=== PATIENT | male | born 1930 | race Caucasian/White ===

== ENCOUNTER 2018-10-27 12:26 | Emergency (ER) | payer MEDICARE, OTHER ==
[2018-10-27] MEDS ORDERED: IPRATROPIUM/ALBUTEROL (0.5MG/3MG) NEB INH ONE (13:03)
--- NOTE | 2018-10-27 13:11 | Emergency Department Record ---
History of Present Illness - General Chief Complaint: Shortness of breath Stated Complaint: SONJA,BALANCE OFF Time Seen by Provider: 10/27/18 12:50 Source: Patient Mode of Arrival: Ambulatory Limitations: No limitations - History of Present Illness Initial Comments: The patient is here due to a 2-3 day hx of cough and congestion with mild SOB. He does have an extensive hx of smoking and bronchitis but is on no inhallers. The patient denies any Cp, back pain, KUMAR, neck pain or sputum production. He also has had some balance issues recently and has fallen a couple of times per the patient's daughter. He may have bumped his head 2 days ago. The patient has been walking well today. MD Complaint: Cough, Shortness of breath Onset/Timin -: Days(s) Improves With: Nothing Worsens With: Nothing Associated Symptoms: Cough Treatments Prior to Arrival: Bronchodilator Treatment Prior to Arrival Comment:: 1030 this morning/albuterol - Related Data Home Medications Medication Instructions Recorded Confirmed Last Taken Aspirin [Lo-Dose Aspirin EC] 81 mg PO DAILY 10/27/18 10/27/18 Unknown Atenolol 25 mg PO DAILY 10/27/18 10/27/18 Unknown Clopidogrel Bisulfate [Plavix] 75 mg PO DAILY 10/27/18 10/27/18 Unknown Cyanocobalamin (Vitamin B-12) 1,000 mcg PO DAILY 10/27/18 10/27/18 Unknown [Vitamin B-12] Glipizide 10 mg PO BID 10/27/18 10/27/18 Unknown Lisinopril 20 mg PO DAILY 10/27/18 10/27/18 Unknown Potassium Chloride [Klor-Con] 10 meq PO DAILY 10/27/18 10/27/18 Unknown Simvastatin [Zocor] 40 mg PO DAILY 10/27/18 10/27/18 Unknown Previous Rx's Medication Instructions Recorded Albuterol Sulfate [Proair Hfa] 2 puff IH QID PRN #1 inhaler 10/27/18 Levofloxacin [Levaquin] 500 mg PO DAILY #6 tablet 10/27/18 Allergies Allergy/AdvReac Type Severity Reaction Status Date / Time No Known Drug Allergies Allergy Verified 10/27/18 12:48 Travel Screening - Travel/Exposure Within Last 30 Days Have you traveled within the last 30 days?: No Review of Systems Constitutional: Reports: Malaise. Denies: Chills, Fever Eyes: Denies: Eye discharge ENT: Reports: Congestion Respiratory: Reports: Cough, Dyspnea. Denies: Hemoptysis Cardiovascular: Denies: Arrhythmia, Chest pain Endocrine: Denies: Fatigue Gastrointestinal: Denies: Nausea Genitourinary: Denies: Dysuria Musculoskeletal: Denies: Back pain Skin: Denies: Bruising Past Medical History - SOCIAL HISTORY Smoking Status: Current every day smoker Alcohol Use: None Drug Use: None - RESPIRATORY Hx Respiratory Disorders: Yes Hx Bronchitis: Yes - CARDIOVASCULAR Hx Cardio Disorders: Yes Hx Heart Attack: Yes - NEURO Hx Neuro Disorders: Yes Hx CVA: Yes Hx Seizures: Yes - GI Hx GI Disorders: No - Hx Genitourinary Disorders: No - ENDOCRINE Hx Endocrine Disorders: Yes Hx Diabetes: Yes (type 2) Hx Thyroid Disease: No - MUSCULOSKELETAL Hx Musculoskeletal Disorders: Yes Hx Arthritis: Yes - PSYCH Hx Psych Problems: No - HEMATOLOGY/ONCOLOGY Hx Hematology/Oncology Disorders: No Family Medical History Any Significant Family History?: No Physical Exam - General General Appearance: Alert, Oriented x3, Cooperative, No acute distress - Head Head exam: Atraumatic, Normocephalic, Normal inspection - Eye Eye exam: Normal appearance, PERRL, EOMI - ENT Throat exam: Normal inspection. negative: Tonsillar erythema, Tonsillar exudate - Neck Neck exam: Normal inspection, Full ROM. negative: Tenderness - Respiratory Respiratory exam: Normal lung sounds bilaterally. negative: Accessory muscle use, Rales, Respiratory distress, Rhonchi, Stridor - Cardiovascular Cardiovascular Exam: Regular rate, Normal rhythm, Normal heart sounds. negative : Diastolic murmur - GI/Abdominal GI/Abdominal exam: Soft, Normal bowel sounds. negative: Tenderness - Extremities Extremities exam: Normal inspection, Full ROM, Normal capillary refill. negative: Tenderness - Back Back exam: Reports: Normal inspection - Neurological Neurological exam: Alert, Normal gait, Oriented X3, Other (Neg Drift or Rhomberg.). negative: Abnormal gait, Motor sensory deficit Course Vital Signs 10/27/18 12:40 Temperature 97.8 F Pulse Rate 57 L Respiratory 18 Rate Blood Pressure 134/60 Pulse Ox 95 - Reevaluation(s) Reevaluation #1: The patient is doing very well at this time. I did get the patient up walking and he had a steady gait with no ataxia. He also had a neg Rhomberg and drift exam. The patient's lungs do appear improved after the neb tx so we will discharge the patient on an oral Abx and an inhaller. He does appear to be very stable for discharge. 10/27/18 14:31 Medical Decision Making - Data Complexity MDM Data: Labs Ordered and/or Reviewed, X-Ray Ordered and/or Reviewed, EKG Ordered and/or Reviewed - Lab Data Result diagrams: 10/27/18 13:22 10/27/18 13:22 - EKG Data -: EKG Interpreted by Me (Sinus rhythm at 55, 1st degree AV block, RBBB with LAFB. Neg ischemia.) - Radiology Data Radiology results: Report reviewed (CXR: Mild bibasilar interstitial changes, most likely chronic. 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 See report for full details.) Disposition Disposition: Discharge Clinical Impression: COPD exacerbation Disposition: Home, Self-Care Condition: (2) Stable Instructions: Dyspnea (ED) Additional Instructions: Please continue the Levaquin as directed and use the home inhaller. Please see your family doctor later this week and return to the ER for any worsening symptoms. Prescriptions: Albuterol Sulfate [Proair Hfa] 2 puff IH QID PRN #1 inhaler PRN Reason: Cough And Difficulty Breathing Levofloxacin [Levaquin] 500 mg PO DAILY #6 tablet Forms: Patient Portal Access Time of Disposition: 14:35 Quality - Quality Measures Quality Measures: N/A - Blood Pressure Screening View Details: Yes Does Patient Have Any of the Following: No Blood Pressure Classification: Normal BP Reading Systolic Measurement: 118 Diastolic Measurement: 57 Screening for High Blood Pressure: < Normal BP, F/U Not Required > [G8783]
[2018-10-27 13:29] LABS: BASO % 0.8 % (0-6); GRAN % 59.3 % (47-80); HEMATOCRIT 40.5 % (42.0-52.0); HEMOGLOBIN 13.8 gm/dl (14.0-18.0); LYMPH % 21.8 % (16-45); MEAN CELL VOLUME 91.6 fl (81-97); MEAN CORPUSCULAR HEMOGLOBIN 31.2 pg (27-33); MEAN CORPUSCULAR HGB CONC 34.1 g/dl (32-36); MEAN PLATELET VOLUME 9.4 fl (7.4-10.4); MONO % 10.1 % (0-9); PLATELET COUNT 208 K/uL (130-400); RED BLOOD COUNT 4.42 M/uL (4.40-5.70); RED CELL DISTRIBUTION WIDTH 14.1 % (11.5-14.5); WHITE BLOOD COUNT W/O DIFF 8.8 K/uL (4.2-12.2)
[2018-10-27 13:40] LABS: BLOOD UREA NITROGEN 13 mg/dL (8-23); EST GLOMERULAR FILTRATION RATE > 60 mL/min
[2018-10-27 13:41] LABS: TOTAL PROTEIN 6.3 g/dL (6.6-8.7)
[2018-10-27 13:43] LABS: GLUCOSE,RANDOM 123 mg/dL (74-109)
[2018-10-27 13:45] LABS: ALB/GLOB RATIO 1.5 (1.1-1.8); ALBUMIN 3.8 g/dL (4.0-5.0); ALKALINE PHOSPHATASE 79 U/L (40-129); ALT/SGPT 17 U/L (<41); AST/SGOT 18 U/L (10.0-50.0)
[2018-10-27 13:49] LABS: CKMB 5.7 ng/mL (<6.73)
[2018-10-27] MEDS ORDERED: LEVOFLOXACIN 500 MG TABLET PO ONE (14:29)
--- NOTE | 2018-10-29 06:18 | RADIOLOGY REPORT ---
DATE: 10/27/2018 at 1338 hours. EXAM: TWO-VIEW CHEST. HISTORY: Cough, weakness, and difficulty breathing for the past two weeks. A history of fall two days ago. TECHNIQUE: PA and lateral upright views of the chest were obtained. COMPARISON: None. FINDINGS: The heart is normal in size. There is calcification of the aorta. The mediastinum and pulmonary vasculature are normal. There are mild interstitial infiltrates at the lung bases which may be chronic. The upper lung carney are clear. There is no pneumothorax or effusion. Degenerative changes are present within the spine. IMPRESSION: MILD INTERSTITIAL INFILTRATES AT THE LUNG BASES WHICH MAY BE CHRONIC. Job Number: [id number] [facility]
--- NOTE | 2018-10-29 06:33 | CT SCAN REPORT ---
DATE: 10/27/2018 at 1352 hours. EXAM: CT SCAN OF THE BRAIN WITHOUT CONTRAST. HISTORY: Recent falls. Bumped head. Difficulty breathing and weakness. On blood thinners. TECHNIQUE: Standard CT imaging of the brain was performed in the axial plane without contrast. COMPARISON: None. ENCOUNTER: Initial. FINDINGS: There is mild to moderate generalized atrophy. The ventricles and subarachnoid spaces are otherwise normal. There is an old area of encephalomalacia involving the right occipital lobe consistent with previous infarct. Mild chronic small-vessel ischemic changes are present within the periventricular and subcortical white matter of both cerebral hemispheres. Tiny , old lacunar infarcts are present within the caudate nuclei bilaterally. There is no mass, mass effect, intracranial hemorrhage, visible acute infarct, or abnormal extra-axial fluid. The skull is intact. Mild mucosal thickening is present within the ethmoid and maxillary sinuses. Superimposed small air fluid levels are present within the maxillary sinuses bilaterally. The orbits and mastoids are normal. IMPRESSION: 1. NO ACUTE INTRACRANIAL ABNORMALITY. 2. 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 3. 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 4. BILATERAL MAXILLARY SINUSITIS. Job Number: [id number] [facility]
== END 2018-10-27 15:18 | disposition home or self-care (01) ==
LOC: ER 12:26
DX: J44.1 Chronic obstructive pulmonary disease with (acute) exacerbation (principal); R06.02 Shortness of breath; R26.89 Other abnormalities of gait and mobility; I25.2 Old myocardial infarction; E11.9 Type 2 diabetes mellitus without complications; F17.210 Nicotine dependence, cigarettes, uncomplicated
CPT/HCPCS: 70450; 71046; 80053; 82550; 82553; 84484; 85025; 93005; 93010; 94640; 99284